=== PATIENT | female | born 2000 | race Caucasian/White ===

== ENCOUNTER 2018-09-20 23:38 | Emergency (ER) | payer OTHER ==
--- NOTE | 2018-09-20 23:42 | ER Report ---
History and Physical Time Seen By MD: 23:41 HPI/ROS CHIEF COMPLAINT: Dysuria HISTORY OF PRESENT ILLNESS: 18-year-old female presents with 1 day of dysuria. She has a mild headache. She notes no back pain. She notes no fever or chills. Her last menstrual periods was 3 days ago. REVIEW OF SYSTEMS: Respiratory: No cough, no dyspnea. Cardiovascular: No chest pain, no palpitations. Gastrointestinal: No vomiting, no abdominal pain. Musculoskeletal: No back pain. Allergies: Coded Allergies: No Known Drug Allergies (Unverified , 09/20/18) Home Meds Active Scripts Cephalexin 500 Mg Tab (KEFLEX 500 MG TAB) 500 Mg Tablet, 500 MG PO TID for infection, #20 TAB Prov:ANA MARÍA SAHU DO 09/21/18 Reported Medications Norgestimate-Ethinyl Estradiol (SPRINTEC) 1 Each Tablet, 1 EACH PO QDAY 09/20/18 Citalopram Hydrobromide (CELEXA) 20 Mg Tablet, 20 MG PO QDAY, #5 TAB 09/20/18 Reviewed Nurses Notes: Yes Old Medical Records Reviewed: Yes Constitutional Vital Sign - Last 24 Hours 09/20/18 09/21/18 09/21/18 09/21/18 23:43 00:08 00:23 00:38 Temp 98.1 Pulse 76 68 67 67 Resp 16 B/P (MAP) 143/79 Pulse Ox 95 96 95 94 O2 Delivery Room Air Physical Exam General Appearance: The patient is alert, has no immediate need for airway protection and no current signs of toxicity. Eyes: Pupils equal and round no injection. Respiratory: Chest is non tender, lungs are clear to auscultation. Cardiac: regular rate and rhythm Gastrointestinal: Abdomen is soft and non tender, no masses, bowel sounds normal. No CVA tenderness Musculoskeletal: Neck: Neck is supple and non tender. Extremities have full range of motion and are non tender. Skin: No rashes or lesions. DIFFERENTIAL DIAGNOSIS: After history and physical exam differential diagnosis was considered for adult fever including but not limited to viral syndromes including influenza, urinary tract infection, pneumonia and sepsis. Medical Decision Making Data Points Laboratory Hematology Test 09/21/18 00:00 Urine Color Yellow Urine Clarity Slightly-cloudy Urine pH 6.0 pH (4.8-9.5) Urine Specific [place] 1.003 Urine Protein Negative mg/dL (NEGATIVE) Urine Glucose (UA) Negative mg/dL (NEGATIVE) Urine Ketones Negative mg/dL (NEGATIVE) Urine Blood Large (NEGATIVE) Urine Nitrite Negative (NEGATIVE) Urine Bilirubin Negative (NEGATIVE) Urine Urobilinogen Negative mg/dL (0.2-1.9) Urine Leukocyte Esterase Moderate (NEGATIVE) Urine RBC 7 /HPF (0-2/HPF) Urine WBC 51 /HPF (0-5/HPF) Urine WBC Clumps Few /HPF Urine Squamous Epithelial Cells Many /LPF (</=FEW) Urine Transitional Epithelial Cells Few /LPF (NONE-FEW) Urine Bacteria Moderate /HPF (NONE-FEW) Urine Mucus None /HPF (NONE-FEW) Urine HCG, Qualitative Negative (NEGATIVE) Chemistry Test 09/21/18 00:00 Urine Color Yellow Urine Clarity Slightly-cloudy Urine pH 6.0 pH (4.8-9.5) Urine Specific [place] 1.003 Urine Protein Negative mg/dL (NEGATIVE) Urine Glucose (UA) Negative mg/dL (NEGATIVE) Urine Ketones Negative mg/dL (NEGATIVE) Urine Blood Large (NEGATIVE) Urine Nitrite Negative (NEGATIVE) Urine Bilirubin Negative (NEGATIVE) Urine Urobilinogen Negative mg/dL (0.2-1.9) Urine Leukocyte Esterase Moderate (NEGATIVE) Urine RBC 7 /HPF (0-2/HPF) Urine WBC 51 /HPF (0-5/HPF) Urine WBC Clumps Few /HPF Urine Squamous Epithelial Cells Many /LPF (</=FEW) Urine Transitional Epithelial Cells Few /LPF (NONE-FEW) Urine Bacteria Moderate /HPF (NONE-FEW) Urine Mucus None /HPF (NONE-FEW) Urine HCG, Qualitative Negative (NEGATIVE) Urinalysis Test 09/21/18 00:00 Urine Color Yellow Urine Clarity Slightly-cloudy Urine pH 6.0 pH (4.8-9.5) Urine Specific [place] 1.003 Urine Protein Negative mg/dL (NEGATIVE) Urine Glucose (UA) Negative mg/dL (NEGATIVE) Urine Ketones Negative mg/dL (NEGATIVE) Urine Blood Large (NEGATIVE) Urine Nitrite Negative (NEGATIVE) Urine Bilirubin Negative (NEGATIVE) Urine Urobilinogen Negative mg/dL (0.2-1.9) Urine Leukocyte Esterase Moderate (NEGATIVE) Urine RBC 7 /HPF (0-2/HPF) Urine WBC 51 /HPF (0-5/HPF) Urine WBC Clumps Few /HPF Urine Squamous Epithelial Cells Many /LPF (</=FEW) Urine Transitional Epithelial Cells Few /LPF (NONE-FEW) Urine Bacteria Moderate /HPF (NONE-FEW) Urine Mucus None /HPF (NONE-FEW) Urine HCG, Qualitative Negative (NEGATIVE) ED Course/Re-evaluation ED Course Patient was admitted to an examination room. H&P was done. The differential diagnoses was considered. Patient with dysuria. Her urinalysis shows evidence of infection. A urinary cultures ordered. Her urine was negative. Patient be treated with Keflex 500 mg 3 times a day. She is given Pyridium here in the ER and advised ibuprofen at home. She is advised to increase her fluid intake. Decision to Disposition Date: Sep 21, 2018 Decision to Disposition Time: 00:33 Depart Departure Latest Vital Signs Vital Signs Date Time Temp Pulse Resp B/P (MAP) Pulse Ox O2 Delivery O2 Flow Rate FiO2 09/21/18 00:38 67 94 09/20/18 23:43 98.1 16 143/79 Room Air Impression: Primary Impression: Urinary tract infection Condition: Improved Disposition: HOME OR SELF-CARE Referrals: GIOVANI SYLVESTER MD New Scripts Cephalexin 500 Mg Tab (KEFLEX 500 MG TAB) 500 Mg Tablet 500 MG PO TID for infection, #20 TAB Prov: ANA MARÍA SAHU DO 09/21/18 Patient Instructions: Urinary Tract Infection in Women (ED) Additional Instructions: Increase fluid intake Follow-up with primary care if unimproved in 2-3 days Problem Qualifiers Primary Impression: Urinary tract infection Urinary tract infection type: acute cystitis Hematuria presence: with hematuria Qualified Codes: N30.01 - Acute cystitis with hematuria ANA MARÍA SAHU DO Sep 20, 2018 23:42
[2018-09-20 23:43] VITALS: BP 143/79
[2018-09-20] MEDS ORDERED: NORG1TAB74 PO (23:50)
[2018-09-20] MEDS ORDERED: CITA-156 PO (23:50)
[2018-09-21] MEDS ORDERED: CEPHALEXIN MONO 500 MG CAP PO ONE (00:30)
[2018-09-21] MEDS ORDERED: PHENAZOPYRIDINE 200 MG TAB PO ONE (00:30)
[2018-09-21] MEDS ORDERED: CEPH500T7 PO (00:34)
== END 2018-09-21 00:45 | disposition home or self-care (01) ==
LOC: ER 23:59
DX: N30.01 Acute cystitis with hematuria (principal)
CPT/HCPCS: 81001; 81025; 87077; 87088; 87186; 99283